=== PATIENT | female | born 1985 | race Caucasian/White ===

== ENCOUNTER 2019-02-16 17:29 | Inpatient (IN) | payer OTHER ==
[2019-02-16 19:36] VITALS: BMI 24.9
--- NOTE | 2019-02-17 01:53 | HP ---
CIWA Score Nausea/Vomitin-Mild Nausea/No Vomiting Muscle Tremors: 3 Anxiety: 3 Agitation: 4-Moderately Restless Paroxysmal Sweats: 2 Orientation: 1-Uncertain about Date Tacttile Disturbances: 0-None Auditory Disturbances: 0-None Visual Disturbances: 0-None Headache: 2-Mild CIWA-Ar Total Score: 16 - Admission Criteria OASAS Guidelines: Admission for Medically Managed Detox: Requires at least one of the followin. CIWA greater than 12 2. Seizures within the past 24 hours 3. Delirium tremens within the past 24 hours 4. Hallucinations within the past 24 hours 5. Acute intervention needed for co occurring medical disorder 6. Acute intervention needed for co occurring psychiatric disorder 7. Severe withdrawal that cannot be handled at a lower level of care (continued vomiting, continued diarrhea, abnormal vital signs) requiring intravenous medication and/or fluids 8. Admission ROS S - [facility] Chief Complaint: Alcohol withdrawal symptoms Allergies/Adverse Reactions: Allergies Allergy/AdvReac Type Severity Reaction Status Date / Time No Known Allergies Allergy Verified 02/16/19 19:20 History of Present Illness: 34 years old female with 20 years of alcohol dependence is seeking admission to detox. patient has been in previous detox at [facility]. This is her first admission at [facility]. Her has medical history of anxiety and depression. Denies suicide attempt and suicidal ideation at this time Exam Limitations: No Limitations - Ebola screening Have you traveled outside of the country in the last 21 days: No Have you had contact with anyone from an Ebola affected area: No Do you have a fever: No - Review of Systems Constitutional: Chills, Loss of Appetite, Night Sweats, Changes in sleep EENT: reports: No Symptoms Reported Respiratory: reports: No Symptoms reported Cardiac: reports: No Symptoms Reported GI: reports: Nausea, Poor Appetite, Poor Fluid Intake, Abdominal cramping : reports: No Symptoms Reported Musculoskeletal: reports: Back Pain, Joint Pain, Muscle Pain, Neck Pain Integumentary: reports: Dryness, Flushing Neuro: reports: Headache, Tremors Endocrine: reports: No Symptoms Reported Hematology: reports: No Symptoms Reported Psychiatric: reports: Anxious, Depressed Other Systems: Reviewed and Negative Patient History - Patient Medical History Hx Anemia: No Hx Asthma: No Hx Chronic Obstructive Pulmonary Disease (COPD): No Hx Cancer: No Hx Cardiac Disorders: No Hx Congestive Heart Failure: No Hx Hypertension: No Hx Hypercholesterolemia: No Hx Pacemaker: No HX Cerebrovascular Accident: No Hx Seizures: No Hx Dementia: No Hx Diabetes: No Hx Gastrointestinal Disorders: No Hx Liver Disease: No Hx Genitourinary Disorders: No Hx Sexually Transmitted Disorders: No Hx Renal Disease (ESRD): No Hx Thyroid Disease: No Hx Human Immunodeficiency Virus (HIV): No (Negative January 2019) Hx Hepatitis C: No Hx Depression: Yes (Cymbalta) Hx Suicide Attempt: No (Denies suicidal ideation at this time) Hx Bipolar Disorder: Yes (Lamictil) Other Medical History: ANXIETY - Cymbalta - Patient Surgical History Past Surgical History: No - PPD History Previous Implant?: Yes Documented Results: Negative w/o proof Implanted On Prior [facility] Admission?: No PPD to be Administered?: Yes - Reproductive History Patient is a Female of Child Bearing Age (11 -55 yrs old): No Last Menstrual Period: 02/03/19 Patient : No - Smoking Cessation Smoking history: Former smoker Have you smoked in the past 12 months: No Hx Chewing Tobacco Use: No Initiated information on smoking cessation: No - Substance & Tx. History Hx Alcohol Use: Yes Hx Substance Use: Yes Substance Use Type: Alcohol, Cocaine Hx Substance Use Treatment: Yes ([facility]) - Substances abused Alcohol Substance route: Oral Frequency: Daily Amount used: 1 BOTTLE VODKA Age of first use: 13 Date of last use: 02/16/19 Family Disease History - Family Disease History Family History: Denies Admission Physical Exam BHS - Vital Signs Vital Signs: Vital Signs - 24 hr 02/16/19 19:19 Temperature 97.8 F Pulse Rate 90 Respiratory 18 Rate Blood Pressure 113/74 - Physical General Appearance: Yes: Severe Distress HEENTM: Yes: EOMI, Normal ENT Inspection, Normal Voice, LOIS Respiratory: Yes: Lungs Clear, Normal Breath Sounds, No Respiratory Distress Neck: Yes: Supple Breast: Yes: Breast Exam Deferred Cardiology: Yes: Regular Rhythm, Regular Rate Abdominal: Yes: Normal Bowel Sounds, Soft Genitourinary: Yes: Within Normal Limits Back: Yes: Normal Inspection Musculoskeletal: Yes: Back pain, Muscle Pain Extremities: Yes: Tremors 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, Alert, Normal Mood/Affect Integumentary: Yes: Warm Lymphatic: Yes: Within Normal Limits - Diagnostic (1) Depression Current Visit: Yes Status: Acute (2) Anxiety Current Visit: Yes Status: Acute (3) Alcohol dependence with uncomplicated withdrawal Current Visit: Yes Status: Acute Cleared for Admission [facility] - Detox or Rehab [facility] Level of Care: Medically Managed Detox Regimen/Protocol: Librium Breathalyzer - Breathalyzer Breathalyzer: 0 POC Urine test - Test device test lot number: [id number] Expiration date: 06/23/20 - Control test control: Yes - Result Urine Test Results: Negative - NO line present Urine Drug Screen - Test Device Lot number: [id number] Expiration date: 09/22/20 - Control Is test valid?: Yes - Results Drug screen NEGATIVE: No Urine drug screen results: NU-Cocaine, BZO-Benzodiazepines Inpatient Rehab Admission - Rehab Decision to Admit Inpatient rehab admission?: No
[2019-02-17] MEDS ORDERED: chlordiazePOXIDE HCL 25 MG CAPSULE PO PRN (02:08)
[2019-02-17] MEDS ORDERED: ACETAMINOPHEN 325 MG TABLET (FP) PO PRN ×2 (02:08)
[2019-02-17] MEDS ORDERED: MAG HYDROX/AL HYDROX/SIMETH 30 ML UNIT-DOSE CUP PO PRN (02:08)
[2019-02-17] MEDS ORDERED: MAGNESIUM HYDROX 2400MG/30ML ORAL SUSPENSION 30 ML CUP PO PRN (02:08)
[2019-02-17] MEDS ORDERED: MENTHOL/PHENOL 1 EACH UD MM PRN (02:08)
[2019-02-17] MEDS ORDERED: MELATONIN 5 MG TABLETS PO PRN (02:08)
[2019-02-17] MEDS ORDERED: hydrOXYzine PAMOATE 25 MG CAPSULE (FP) PO PRN (02:08)
[2019-02-17] MEDS ORDERED: MAGNESIUM CITRATE 300 ML BOTTLE PO PRN (02:08)
[2019-02-17] MEDS ORDERED: BISMUTH SUBSALICYLATE 524 MG/30 ML UD PO PRN (02:08)
[2019-02-17] MEDS: chlordiazePOXIDE HCL 25 MG CAPSULE PO SCH ×4 (04:00→23:20)
[2019-02-17] MEDS: PRENATAL VITAMINS W/ FOLIC ACID TABLET (FP) PO SCH (10:13)
--- NOTE | 2019-02-17 13:07 | CONSULT ---
[facility] Psychiatric Consult - Data Date of interview: 02/17/19 Admission source: [facility] Identifying data: First admission to [facility] for this 34 y/o female self-referred or detoxification treatment (alcohol, cocaine). Examined at [address] [place] [address]. Patient is single, no children, undomiciled, unemployed and supported by biological father. Substance Abuse History: Confrmed by the patient in this interview. Details in current [facility] report as follows : Smoking history: Former smoker. Have you smoked in the past 12 months: No. Hx Chewing Tobacco Use: No. Initiated information on smoking cessation: No. - Substance & Tx. History. Hx Alcohol Use: Yes. Hx Substance Use: Yes. Substance Use Type: Alcohol, Cocaine. Hx Substance Use Treatment: Yes ([facility] - Substances abused. Alcohol. Substance route: Oral. Frequency: Daily. Amount used: 1 BOTTLE VODKA. Age of first use: 13. Date of last use: 02/16/19 Medical History: Patient endorses good general health. Psychiatric History: No reported history of psychiatric hospitalizations. Patient states that she has recently returned to [place] from [place] (a month ago). Diagnosed in [place] with Anxiety Disorder and Mood Disorder. Medicated with lamotrigine (not taken for over a week), duloxetine and quetiapine (no adherence for more than a month). Ms Shepherd denies history of suicide attempts. Physical/Sexual Abuse/Trauma History: Not discussed. Patient declines. Additional Comment: Urine drug screen results: NU-Cocaine, BZO- Benzodiazepines. Noted. Mental Status Exam - Mental Status Exam Alert and Oriented to: Time, Place, Person Cognitive Function: Good Patient Appearance: Disheveled Mood: Nervous, Withdrawn Affect: Mood Congruent, Constricted Patient Behavior: Fatigued, Appropriate, Cooperative Speech Pattern: Clear, Appropriate Voice Loudness: Normal Thought Process: Goal Oriented Thought Disorder: Not Present Hallucinations: Denies Suicidal Ideation: Denies Homicidal Ideation: Denies Insight/Judgement: Poor Sleep: Poorly, Difficulty falling asleep Appetite: Good Gait/Station: Normal Psychiatric Findings - Problem List ([place] 1, 2,3) (1) Alcohol dependence with uncomplicated withdrawal Current Visit: Yes Status: Acute (2) Cocaine abuse Current Visit: Yes Status: Chronic (3) Substance induced mood disorder Current Visit: Yes Status: Chronic (4) History of bipolar disorder Current Visit: Yes Status: Chronic (5) Insomnia Current Visit: Yes Status: Chronic (6) Non-compliance Current Visit: Yes Status: Acute - Initial Treatment Plan Initial Treatment Plan: Psychoeducation. Sleep hygiene. Detoxification. Groups. AA meetings. Support. Relapse prevention (MAT) : discussed with the patient. Rehabilitative care recommended. Medicatiosn resumed as follows : seroquel 50 mg po hs + duloxetine 20 mg po daily. Side effects/benefits of both medications are discussed with the patient. Ms Shepherd agrees to follow this plan of care. Observation.
--- NOTE | 2019-02-17 13:50 | PN ---
S CIWA - CIWA Score Nausea/Vomitin-No Nausea/No Vomiting Muscle Tremors: 4-Moderate,w/Arms Extend Anxiety: 4-Mod. Anxious/Guarded Agitation: 4-Moderately Restless Paroxysmal Sweats: 3 Orientation: 0-Oriented Tacttile Disturbances: 0-None Auditory Disturbances: 0-None Visual Disturbances: 0-None Headache: 0-None Present CIWA-Ar Total Score: 15 BHS Progress Note (SOAP) Subjective: irritable agitation sweats shakes interrupted sleep Objective: 02/17/19 13:49 Vital Signs Temperature 97.1 F L 02/17/19 09:58 Pulse Rate 83 02/17/19 09:58 Respiratory Rate 16 02/17/19 09:58 Blood Pressure 91/63 02/17/19 09:58 O2 Sat by Pulse Oximetry (%) labs pending aaox3 ambulating no acute distress Assessment: 02/17/19 13:50 withdrawal sx Plan: continue detox increase fluids pending labs
[2019-02-17] MEDS: QUEtiapine FUMARATE 50 MG TABLET PO SCH (23:20)
[2019-02-17] MEDS: THIAMINE HCL 100 MG TABLET (FP) PO SCH (23:20)
[2019-02-17 23:52] LABS: PH,URINE 7.5 (5.0-8.0); URINE APPEARANCE CLEAR; URINE BILIRUBIN NEGATIVE (NEGATIVE); URINE COLOR YELLOW; URINE GLUCOSE (UA) NEGATIVE (NEGATIVE); URINE KETONE TRACE (NEGATIVE); URINE LEUK ESTERASE NEGATIVE (NEGATIVE); URINE NITRITE NEGATIVE (NEGATIVE); URINE PROTEIN NEGATIVE (NEGATIVE)
[2019-02-18] MEDS: chlordiazePOXIDE HCL 25 MG CAPSULE PO SCH ×4 (05:57→22:49)
[2019-02-18 11:00] LABS: HEMOGLOBIN 12.6 GM/dL (10.7-15.3); MCH 29.9 pg (25.7-33.7); MCHC 33.2 g/dl (32.0-36.0); MEAN CELL VOLUME 90.1 fl (80-96); PLATELET COUNT 658 K/MM3 (134-434); RBC 4.22 M/mm3 (3.60-5.2); RDW 19.6 % (11.6-15.6); WHITE BLOOD COUNT 4.1 K/mm3 (4.0-10.0)
[2019-02-18] MEDS: PRENATAL VITAMINS W/ FOLIC ACID TABLET (FP) PO SCH (11:00)
[2019-02-18] MEDS: IBUPROFEN 400 MG TABLET (FP) PO PRN ×2 (11:01→19:46)
[2019-02-18 11:03] LABS: ALBUMIN 3.1 g/dl (3.4-5.0); ALK PHOS 59 U/L (45-117); ANION GAP 6 MMOL/L (8-16); BILIRUBIN,TOTAL 0.5 mg/dL (0.2-1); BLOOD UREA NITROGEN 4 mg/dL (7-18); CALCIUM 9.2 mg/dL (8.5-10.1); CHLORIDE 101 mmol/L (98-107); CO2 29 mmol/L (21-32); CREATININE 0.5 mg/dL (0.55-1.3); GLUCOSE,RANDOM 89 mg/dL (74-106); SGOT/AST 38 U/L (15-37); SGPT/ALT 44 U/L (13-61); SODIUM 136 mmol/L (136-145); TOT PROT 6.8 g/dl (6.4-8.2)
[2019-02-18] MEDS: DULoxetine HCL 20 MG CAPSULE.DR (FP) PO SCH (11:33)
--- NOTE | 2019-02-18 14:18 | PN ---
[facility] CIWA - CIWA Score Nausea/Vomitin-No Nausea/No Vomiting Muscle Tremors: 3 Anxiety: 2 Agitation: 2 Paroxysmal Sweats: 2 Orientation: 0-Oriented Tacttile Disturbances: 2-Mild Itch/Numbness/Burn Auditory Disturbances: 0-None Visual Disturbances: 0-None Headache: 0-None Present CIWA-Ar Total Score: 11 S Progress Note (SOAP) Subjective: patient c/o night sweats, anxiety, mild irritability, sleep disturbance, dry skin and shakes Objective: 02/18/19 14:17 Vital Signs Temperature 99.0 F 02/18/19 09:44 Pulse Rate 93 H 02/18/19 09:44 Respiratory Rate 18 02/18/19 09:44 Blood Pressure 121/70 02/18/19 09:44 O2 Sat by Pulse Oximetry (%) Laboratory Tests 02/17/19 02/18/19 02/18/19 23:40 07:00 07:00 WBC 4.1 RBC 4.22 Hgb 12.6 Hct 38.0 MCV 90.1 MCH 29.9 MCHC 33.2 RDW 19.6 H Plt Count 658 H MPV 8.0 Sodium 136 Potassium 4.0 Chloride 101 Carbon Dioxide 29 Anion Gap 6 L BUN 4 L Creatinine 0.5 L Creat Clearance w eGFR 140.41 Random Glucose 89 Calcium 9.2 Total Bilirubin 0.5 AST 38 H ALT 44 Alkaline Phosphatase 59 Total Protein 6.8 Albumin 3.1 L Urine Color Yellow Urine Appearance Clear Urine pH 7.5 Ur Specific [place] 1.019 Urine Protein Negative Urine Glucose (UA) Negative Urine Ketones Trace H Urine Blood Negative Urine Nitrite Negative Urine Bilirubin Negative Urine Urobilinogen 1.0 Ur Leukocyte Esterase Negative RPR Titer 02/18/19 07:00 WBC RBC Hgb Hct MCV MCH MCHC RDW Plt Count MPV Sodium Potassium Chloride Carbon Dioxide Anion Gap BUN Creatinine Creat Clearance w eGFR Random Glucose Calcium Total Bilirubin AST ALT Alkaline Phosphatase Total Protein Albumin Urine Color Urine Appearance Urine pH Ur Specific [place] Urine Protein Urine Glucose (UA) Urine Ketones Urine Blood Urine Nitrite Urine Bilirubin Urine Urobilinogen Ur Leukocyte Esterase RPR Titer Nonreactive pe: alert and oriented x 3 skin warm and dry +perrla, eoms intact ext +tremors amb ad norberto mildly anxious Assessment: 02/18/19 14:18 withdrawal sx Plan: continue detox encourage fluids eucerin cream monitor clinically
--- NOTE | 2019-02-18 15:31 | EKG ---
Test Reason : Blood Pressure : / mmHG Vent. Rate : 071 BPM Atrial Rate : 071 BPM P-R Int : 152 ms QRS Dur : 092 ms QT Int : 410 ms P-R-T Axes : 017 059 042 degrees QTc Int : 445 ms NORMAL SINUS RHYTHM NORMAL ECG NO PREVIOUS ECGS AVAILABLE Confirmed by NATALIE MINAYA MD ([id number]) on 02/18/2019 3:31:30 PM Referred By: Confirmed By:NATALIE MINAYA MD
[2019-02-18] MEDS: MINERAL OIL/PETROLAT/WATER TOPICAL CREAM 113 GM JAR TP SCH ×2 (17:52→22:47)
[2019-02-18] MEDS: METHOCARBAMOL 500 MG TABLET PO PRN (19:46)
[2019-02-18] MEDS: THIAMINE HCL 100 MG TABLET (FP) PO SCH (22:46)
[2019-02-18] MEDS: QUEtiapine FUMARATE 50 MG TABLET PO SCH (22:49)
[2019-02-19] MEDS ORDERED: chlordiazePOXIDE HCL 10 MG CAPSULE PO PRN (05:00)
[2019-02-19] MEDS: METHOCARBAMOL 500 MG TABLET PO PRN (06:04)
[2019-02-19] MEDS: chlordiazePOXIDE HCL 10 MG CAPSULE PO SCH ×4 (06:04→22:12)
[2019-02-19] MEDS: DULoxetine HCL 20 MG CAPSULE.DR (FP) PO SCH (10:58)
[2019-02-19] MEDS: PRENATAL VITAMINS W/ FOLIC ACID TABLET (FP) PO SCH (10:58)
[2019-02-19] MEDS: MINERAL OIL/PETROLAT/WATER TOPICAL CREAM 113 GM JAR TP SCH ×2 (10:59→22:10)
--- NOTE | 2019-02-19 11:05 | PN ---
[facility] CIWA - CIWA Score Nausea/Vomitin-No Nausea/No Vomiting Muscle Tremors: 3 Anxiety: 2 Agitation: 2 Paroxysmal Sweats: 1-Minimal Palms Moist Orientation: 0-Oriented Tacttile Disturbances: 0-None Auditory Disturbances: 0-None Visual Disturbances: 0-None Headache: 0-None Present CIWA-Ar Total Score: 8 BHS Progress Note (SOAP) Subjective: little shakes anxiety Objective: 02/19/19 11:05 Vital Signs Temperature 97.9 F 02/19/19 09:21 Pulse Rate 83 02/19/19 09:21 Respiratory Rate 18 02/19/19 09:21 Blood Pressure 118/71 02/19/19 09:21 O2 Sat by Pulse Oximetry (%) aaox3 ambulating no acute distress Assessment: 02/19/19 11:05 mild withdrawal sx Plan: continue detox increase fluids d/c in am
[2019-02-19] MEDS: metroNIDAZOLE 250 MG TABLET PO SCH ×2 (12:46→22:10)
[2019-02-19] MEDS: QUEtiapine FUMARATE 50 MG TABLET PO SCH (22:10)
[2019-02-19] MEDS: THIAMINE HCL 100 MG TABLET (FP) PO SCH (22:12)
[2019-02-19 22:17] VITALS: PULSE 70
[2019-02-20] MEDS ORDERED: chlordiazePOXIDE HCL 10 MG CAPSULE PO SCH (05:00)
[2019-02-20 07:35] VITALS: BP 100/55; TEMP 97.9
[2019-02-20] MEDS: metroNIDAZOLE 250 MG TABLET PO SCH (09:36)
[2019-02-20] MEDS: DULoxetine HCL 20 MG CAPSULE.DR (FP) PO SCH (09:36)
[2019-02-20] MEDS: PRENATAL VITAMINS W/ FOLIC ACID TABLET (FP) PO SCH (09:36)
--- NOTE | 2019-02-20 10:03 | DS ---
[facility] Detox Discharge Summary Admission Date: 02/17/19 Discharge Date: 02/20/19 - History Present History: Alcohol Dependence, Cocaine Dependence - Physical Exam Results Vital Signs: Vital Signs Temperature 97.9 F 02/20/19 06:00 Pulse Rate 70 02/20/19 06:00 Respiratory Rate 16 02/20/19 06:00 Blood Pressure 100/55 L 02/20/19 06:00 O2 Sat by Pulse Oximetry (%) - Treatment Hospital Course: Detox Protocol Followed, Detoxed Safely, Responded well, Discharged Condition Good, Rehab Referral Accepted - Medication Discharge Medications: Ambulatory Orders Duloxetine HCl [Cymbalta] 20 mg PO DAILY 02/16/19 Lamotrigine [Lamictal Xr] 50 mg PO DAILY 02/16/19 metroNIDAZOLE [Flagyl -] 500 mg PO BID #12 tablet 02/20/19 - Diagnosis (1) Alcohol dependence with uncomplicated withdrawal Status: Chronic (2) Anxiety Status: Acute (3) Depression Status: Acute (4) Cocaine abuse Status: Chronic (5) History of bipolar disorder Status: Chronic (6) Insomnia Status: Chronic (7) Substance induced mood disorder Status: Chronic - AMA Did Patient Leave Against Medical Advice: No (referred to [facility] outpatient rehab)
== END 2019-02-20 09:46 | disposition home or self-care (01) | DRG 774 ==
LOC: YASAS 17:29 → Y6N 02-17 01:55
PROVIDERS: ADMIT Surgery; ATTEND Surgery
PROC: HZ2ZZZZ Detoxification Services for Substance Abuse Treatment (ICD-10-PCS; principal; 2019-02-17)
DX: F10.230 Alcohol dependence with withdrawal, uncomplicated (principal); F14.10 Cocaine abuse, uncomplicated; F19.24 Other psychoactive substance dependence with psychoactive substance-induced mood disorder; F41.8 Other specified anxiety disorders; F32.9 Major depressive disorder, single episode, unspecified; F31.9 Bipolar disorder, unspecified; G47.00 Insomnia, unspecified; Z91.19 Patient's noncompliance with other medical treatment and regimen
CPT/HCPCS: 36415; 80053; 81003; 85027; 86593; 93005; 93010

== ENCOUNTER 2019-11-18 10:05 | Inpatient (IN) | payer OTHER ==
[2019-11-18 10:21] VITALS: BMI 24.9
--- NOTE | 2019-11-18 11:01 | HP ---
CIWA Score Nausea/Vomitin Muscle Tremors: 3 Anxiety: 3 Agitation: 2 Paroxysmal Sweats: 2 Orientation: 0-Oriented Tacttile Disturbances: 1-Very Mild Itch/Numbness Auditory Disturbances: 0-None Visual Disturbances: 0-None Headache: 2-Mild CIWA-Ar Total Score: 15 - Admission Criteria OASAS Guidelines: Admission for Medically Managed Detox: Requires at least one of the followin. CIWA greater than 12 2. Seizures within the past 24 hours 3. Delirium tremens within the past 24 hours 4. Hallucinations within the past 24 hours 5. Acute intervention needed for co occurring medical disorder 6. Acute intervention needed for co occurring psychiatric disorder 7. Severe withdrawal that cannot be handled at a lower level of care (continued vomiting, continued diarrhea, abnormal vital signs) requiring intravenous medication and/or fluids 8. Patient presents the following: CIWA greater than 12 Admission Criteria Met: Admission criteria met Admitting History and Physical - Past Medical History ...LMP: 02/03/19 - Smoking History Smoking history: Former smoker Have you smoked in the past 12 months: No - Alcohol/Substance Use Hx Alcohol Use: Yes Admission ROS [facility] - [facility] Chief Complaint: Withdrawal sx Allergies/Adverse Reactions: Allergies Allergy/AdvReac Type Severity Reaction Status Date / Time No Known Allergies Allergy Verified 11/18/19 10:15 History of Present Illness: Patient is a 34 years old female with 21 years of alcohol dependence who presents for detox. Her last treatment at [facility] was from 02/17/19-02/20/19 then went to [facility] detox in August. She reports several blackouts, last episode was last night. She denies alcohol related seizures. - Ebola screening Have you traveled outside of the country in the last 21 days: No (N) Have you had contact with anyone from an Ebola affected area: No Have you been sick,other than usual withdrawal symptoms: No Do you have a fever: No - Review of Systems Constitutional: Chills, Malaise, Changes in sleep, Weight Stable EENT: reports: No Symptoms Reported Respiratory: reports: SOB with Exertion Cardiac: reports: Chest Pain (on and off) GI: reports: Poor Appetite, Poor Fluid Intake, Abdominal cramping : reports: No Symptoms Reported Musculoskeletal: reports: Back Pain, Joint Pain, Muscle Pain, Muscle Weakness Integumentary: reports: Sweating Neuro: reports: Headache, Numbness, Tremors Endocrine: reports: No Symptoms Reported Hematology: reports: No Symptoms Reported Psychiatric: reports: Orientated x3, Anxious, Depressed Other Systems: Reviewed and Negative Patient History - Patient Medical History Hx Anemia: No Hx Asthma: No Hx Chronic Obstructive Pulmonary Disease (COPD): No Hx Cancer: No Hx Cardiac Disorders: No Hx Congestive Heart Failure: No Hx Hypertension: No Hx Hypercholesterolemia: No Hx Pacemaker: No HX Cerebrovascular Accident: No Hx Seizures: No Hx Dementia: No Hx Diabetes: No Hx Gastrointestinal Disorders: No Hx Liver Disease: No Hx Genitourinary Disorders: No Hx Sexually Transmitted Disorders: No Hx Renal Disease (ESRD): No Hx Thyroid Disease: No Hx Human Immunodeficiency Virus (HIV): No Hx Hepatitis C: No Hx Depression: Yes Hx Suicide Attempt: No Hx Bipolar Disorder: Yes Hx Schizophrenia: No - Patient Surgical History Past Surgical History: Yes Hx Neurologic Surgery: No Hx Cataract Extraction: No Hx Cardiac Surgery: No Hx Lung Surgery: Yes (partial right lung removal) Hx Breast Surgery: No Hx Breast Biopsy: No Hx Abdominal Surgery: No Hx Appendectomy: No Hx Cholecystectomy: No Hx Genitourinary Surgery: No Hx Section: No Hx Orthopedic Surgery: No Hx Hysterectomy: No Anesthesia Reaction: No - PPD History Previous Implant?: Yes Documented Results: Negative w/proof Implanted On Prior [facility] Admission?: Yes Date: 02/19/19 PPD to be Administered?: No - Reproductive History Patient is a Female of Child Bearing Age (11 -55 yrs old): Yes Last Menstrual Period: 10/17/19 Patient : No - Smoking Cessation Smoking history: Former smoker Have you smoked in the past 12 months: No Hx Chewing Tobacco Use: No Initiated information on smoking cessation: No - Substances abused Alcohol Substance route: Oral Frequency: Daily Amount used: 3pints of vodka Age of first use: 13 Date of last use: 11/17/19 Admission Physical Exam BHS - Vital Signs Vital Signs: Vital Signs - 24 hr 11/18/19 10:17 Temperature 97.5 F L Pulse Rate 72 Respiratory 16 Rate Blood Pressure 123/82 - Physical General Appearance: Yes: Mild Distress HEENTM: Yes: EOMI, Hearing grossly Normal, Normocephalic, Normal Voice, Pharynx Normal Respiratory: Yes: Chest Non-Tender, Lungs Clear, Normal Breath Sounds, No Respiratory Distress, No Accessory Muscle Use Neck: Yes: No masses,lesions,Nodules, Supple Breast: Yes: Breast Exam Deferred Cardiology: Yes: Regular Rhythm, Regular Rate, S1, S2 Abdominal: Yes: Normal Bowel Sounds, Non Tender, Soft Genitourinary: Yes: Within Normal Limits Back: Yes: Normal Inspection Musculoskeletal: Yes: Back pain, Muscle Pain, Muscle weakness Extremities: Yes: Tremors 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 - Detox or Rehab [facility] Level of Care: Medically Managed Detox Regimen/Protocol: Librium Claeared for Rehab Admission: No Breathalyzer - Breathalyzer Breathalyzer: 0 POC Urine test - Test device test lot number: [id number] Expiration date: 06/23/20 - Control test control: Yes Urine Drug Screen - Test Device Lot number: [id number] Expiration date: 05/23/21 - Control Is test valid?: Yes - Results Drug screen NEGATIVE: No Urine drug screen results: NU-Cocaine, BZO-Benzodiazepines Inpatient Rehab Admission - Rehab Decision to Admit Inpatient rehab admission?: No
[2019-11-18] MEDS ORDERED: MAGNESIUM CITRATE 300 ML BOTTLE PO PRN (11:09)
[2019-11-18] MEDS ORDERED: ACETAMINOPHEN 325 MG TABLET (FP) PO PRN ×2 (11:09)
[2019-11-18] MEDS ORDERED: IBUPROFEN 400 MG TABLET (FP) PO PRN (11:09)
[2019-11-18] MEDS ORDERED: chlordiazePOXIDE HCL 10 MG CAPSULE PO PRN (11:09)
[2019-11-18] MEDS ORDERED: MELATONIN 5 MG TABLETS PO PRN (11:09)
[2019-11-18] MEDS ORDERED: ONDANSETRON *ODT* 4 MG TABLET SL PRN (11:09)
[2019-11-18] MEDS ORDERED: MAGNESIUM HYDROX 2400MG/30ML ORAL SUSPENSION 30 ML CUP PO PRN (11:09)
[2019-11-18] MEDS ORDERED: MAG HYDROX/AL HYDROX/SIMETH 30 ML UNIT-DOSE CUP PO PRN (11:09)
[2019-11-18] MEDS ORDERED: hydrOXYzine PAMOATE 25 MG CAPSULE (FP) PO PRN (11:09)
[2019-11-18] MEDS ORDERED: MENTHOL/PHENOL 1 EACH UD MM PRN (11:09)
[2019-11-18] MEDS ORDERED: BISMUTH SUBSALICYLATE 524 MG/30 ML UD PO PRN (11:09)
[2019-11-18] MEDS: chlordiazePOXIDE HCL 25 MG CAPSULE PO SCH ×2 (12:38→22:07)
[2019-11-18] MEDS: THIAMINE HCL 100 MG TABLET (FP) PO SCH (22:07)
[2019-11-18] MEDS: METHOCARBAMOL 500 MG TABLET PO PRN (22:08)
[2019-11-19] MEDS: chlordiazePOXIDE HCL 25 MG CAPSULE PO SCH ×3 (05:38→21:44)
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
[2019-11-19 09:35] LABS: HEMATOCRIT 35.3 % (32.4-45.2); HEMOGLOBIN 11.7 GM/dL (10.7-15.3); MCH 31.1 pg (25.7-33.7); MCHC 33.3 g/dl (32.0-36.0); MEAN CELL VOLUME 93.3 fl (80-96); PLATELET COUNT 251 K/MM3 (134-434); RBC 3.78 M/mm3 (3.60-5.2); WHITE BLOOD COUNT 3.8 K/mm3 (4.0-10.0)
[2019-11-19 09:44] LABS: ALBUMIN 3.3 g/dl (3.4-5.0); BILIRUBIN,TOTAL 0.6 mg/dL (0.2-1); BLOOD UREA NITROGEN 4.6 mg/dL (7-18); CALCIUM 8.4 mg/dL (8.5-10.1); CREATININE 0.5 mg/dL (0.55-1.3); POTASSIUM 3.8 mmol/L (3.5-5.1); TOT PROT 7.1 g/dl (6.4-8.2)
[2019-11-19] MEDS: PRENATAL VITAMINS W/ FOLIC ACID TABLET (FP) PO SCH (10:09)
[2019-11-19] MEDS: lamoTRIgine 25 MG TABLET PO SCH (10:27)
[2019-11-19] MEDS: DULoxetine HCL 20 MG CAPSULE.DR PO SCH (10:27)
--- NOTE | 2019-11-19 13:58 | PN ---
[facility] CIWA - CIWA Score Nausea/Vomitin-No Nausea/No Vomiting Muscle Tremors: 3 Anxiety: 2 Agitation: 1-Slight > Activity Paroxysmal Sweats: 2 Orientation: 0-Oriented Tacttile Disturbances: 1-Very Mild Itch/Numbness Auditory Disturbances: 1-Very Mild Visual Disturbances: 1-Very Mild Sensitivity Headache: 0-None Present CIWA-Ar Total Score: 11 S Progress Note (SOAP) Subjective: 34 years old female admitted on 11/18/19 for alcohol withdrawal sx management treating with librium detox regimen c/o general body aches encourage tylenal administration loose stool imodium 4 mg po x 1 poor appetite ensure supplement Objective: 11/19/19 14:00 Vital Signs Temperature 97.9 F 11/19/19 13:16 Pulse Rate 60 11/19/19 13:16 Respiratory Rate 16 11/19/19 13:16 Blood Pressure 123/85 11/19/19 13:16 O2 Sat by Pulse Oximetry (%) Laboratory Last Values WBC 3.8 K/mm3 (4.0-10.0) L 11/19/19 08:00 RBC 3.78 M/mm3 (3.60-5.2) 11/19/19 08:00 Hgb 11.7 GM/dL (10.7-15.3) 11/19/19 08:00 Hct 35.3 % (32.4-45.2) 11/19/19 08:00 MCV 93.3 fl (80-96) 11/19/19 08:00 MCH 31.1 pg (25.7-33.7) 11/19/19 08:00 MCHC 33.3 g/dl (32.0-36.0) 11/19/19 08:00 RDW 19.0 % (11.6-15.6) H 11/19/19 08:00 Plt Count 251 K/MM3 (134-434) D 11/19/19 08:00 MPV 8.0 fl (7.5-11.1) 11/19/19 08:00 Sodium 136 mmol/L (136-145) 11/19/19 08:00 Potassium 3.8 mmol/L (3.5-5.1) 11/19/19 08:00 Chloride 104 mmol/L (98-107) 11/19/19 08:00 Carbon Dioxide 24 mmol/L (21-32) 11/19/19 08:00 Anion Gap 8 MMOL/L (8-16) 11/19/19 08:00 BUN 4.6 mg/dL (7-18) L 11/19/19 08:00 Creatinine 0.5 mg/dL (0.55-1.3) L 11/19/19 08:00 Est GFR (CKD-EPI)AfAm 145.33 11/19/19 08:00 Est GFR (CKD-EPI)NonAf 125.39 11/19/19 08:00 Random Glucose 91 mg/dL (74-106) 11/19/19 08:00 Calcium 8.4 mg/dL (8.5-10.1) L 11/19/19 08:00 Total Bilirubin 0.6 mg/dL (0.2-1) 11/19/19 08:00 AST 54 U/L (15-37) H 11/19/19 08:00 ALT 51 U/L (13-61) 11/19/19 08:00 Alkaline Phosphatase 57 U/L (45-117) 11/19/19 08:00 Total Protein 7.1 g/dl (6.4-8.2) 11/19/19 08:00 Albumin 3.3 g/dl (3.4-5.0) L 11/19/19 08:00 RPR Titer Nonreactive (NONREACTIVE) 11/19/19 08:00 lab noted Assessment: 11/19/19 14:01 alcohol withdrawal Plan: librium regimen
[2019-11-19] MEDS: busPIRone HCL 10 MG TABLET (FP) PO SCH ×2 (14:24→21:44)
[2019-11-19] MEDS ORDERED: LOPERAMIDE HCL 2 MG CAPSULE PO ONE (14:30)
[2019-11-19] MEDS: traZODone HCL 100 MG TABLET (FP) PO SCH (21:44)
[2019-11-19] MEDS: THIAMINE HCL 100 MG TABLET (FP) PO SCH (21:44)
[2019-11-20] MEDS: chlordiazePOXIDE 5 MG CAPSULE PO SCH ×3 (05:37→22:09)
[2019-11-20] MEDS: busPIRone HCL 10 MG TABLET (FP) PO SCH ×3 (05:37→22:10)
[2019-11-20] MEDS: PRENATAL VITAMINS W/ FOLIC ACID TABLET (FP) PO SCH (10:27)
[2019-11-20] MEDS: lamoTRIgine 25 MG TABLET PO SCH (10:27)
[2019-11-20] MEDS: DULoxetine HCL 20 MG CAPSULE.DR PO SCH (10:27)
[2019-11-20] MEDS ORDERED: guaiFENesin 600 MG TABLET.ER (FP) PO SCH (12:15)
--- NOTE | 2019-11-20 12:15 | PN ---
[facility] CIWA - CIWA Score Nausea/Vomitin-No Nausea/No Vomiting Muscle Tremors: 2 Anxiety: 2 Agitation: 2 Paroxysmal Sweats: 2 Orientation: 0-Oriented Tacttile Disturbances: 0-None Auditory Disturbances: 0-None Visual Disturbances: 1-Very Mild Sensitivity Headache: 0-None Present CIWA-Ar Total Score: 9 S Progress Note (SOAP) Subjective: 34 years old female admitted on 11/18/19 for alcohol withdrawal sx management treating with librium detox regiment patient reports frequent urination UA order requests to discuss dosage change for her psychotropic medication Objective: 11/20/19 12:18 Vital Signs Temperature 96.4 F L 11/20/19 09:07 Pulse Rate 69 11/20/19 09:07 Respiratory Rate 16 11/20/19 09:07 Blood Pressure 111/73 11/20/19 09:07 O2 Sat by Pulse Oximetry (%) Laboratory Last Values WBC 3.8 K/mm3 (4.0-10.0) L 11/19/19 08:00 RBC 3.78 M/mm3 (3.60-5.2) 11/19/19 08:00 Hgb 11.7 GM/dL (10.7-15.3) 11/19/19 08:00 Hct 35.3 % (32.4-45.2) 11/19/19 08:00 MCV 93.3 fl (80-96) 11/19/19 08:00 MCH 31.1 pg (25.7-33.7) 11/19/19 08:00 MCHC 33.3 g/dl (32.0-36.0) 11/19/19 08:00 RDW 19.0 % (11.6-15.6) H 11/19/19 08:00 Plt Count 251 K/MM3 (134-434) D 11/19/19 08:00 MPV 8.0 fl (7.5-11.1) 11/19/19 08:00 Sodium 136 mmol/L (136-145) 11/19/19 08:00 Potassium 3.8 mmol/L (3.5-5.1) 11/19/19 08:00 Chloride 104 mmol/L (98-107) 11/19/19 08:00 Carbon Dioxide 24 mmol/L (21-32) 11/19/19 08:00 Anion Gap 8 MMOL/L (8-16) 11/19/19 08:00 BUN 4.6 mg/dL (7-18) L 11/19/19 08:00 Creatinine 0.5 mg/dL (0.55-1.3) L 11/19/19 08:00 Est GFR (CKD-EPI)AfAm 145.33 11/19/19 08:00 Est GFR (CKD-EPI)NonAf 125.39 11/19/19 08:00 Random Glucose 91 mg/dL (74-106) 11/19/19 08:00 Calcium 8.4 mg/dL (8.5-10.1) L 11/19/19 08:00 Total Bilirubin 0.6 mg/dL (0.2-1) 11/19/19 08:00 AST 54 U/L (15-37) H 11/19/19 08:00 ALT 51 U/L (13-61) 11/19/19 08:00 Alkaline Phosphatase 57 U/L (45-117) 11/19/19 08:00 Total Protein 7.1 g/dl (6.4-8.2) 11/19/19 08:00 Albumin 3.3 g/dl (3.4-5.0) L 11/19/19 08:00 RPR Titer Nonreactive (NONREACTIVE) 11/19/19 08:00 lab noted Assessment: 11/20/19 12:19 alcohol withdrawal patient prefers out patient due to a "case" pending in court and "teeth" needed to be fixed and she wants to go to [place] to her family Plan: librium regiment
[2019-11-20] MEDS: THIAMINE HCL 100 MG TABLET (FP) PO SCH (22:09)
[2019-11-20] MEDS: traZODone HCL 100 MG TABLET (FP) PO SCH (22:10)
[2019-11-20] MEDS: METHOCARBAMOL 500 MG TABLET PO PRN (22:13)
[2019-11-21] MEDS ORDERED: chlordiazePOXIDE HCL 10 MG CAPSULE PO PRN
[2019-11-21] MEDS: chlordiazePOXIDE HCL 10 MG CAPSULE PO SCH ×3 (06:28→22:13)
[2019-11-21] MEDS: busPIRone HCL 10 MG TABLET (FP) PO SCH ×3 (06:28→22:13)
[2019-11-21] MEDS: PRENATAL VITAMINS W/ FOLIC ACID TABLET (FP) PO SCH (10:16)
[2019-11-21] MEDS: lamoTRIgine 25 MG TABLET PO SCH (10:16)
[2019-11-21] MEDS: DULoxetine HCL 20 MG CAPSULE.DR PO SCH (10:16)
--- NOTE | 2019-11-21 12:27 | PN ---
[facility] CIWA - CIWA Score Nausea/Vomitin-No Nausea/No Vomiting Muscle Tremors: 1-None Visible, but [place] Anxiety: 1-Mildly Anxious Agitation: 1-Slight > Activity Paroxysmal Sweats: 1-Minimal Palms Moist Orientation: 0-Oriented Tacttile Disturbances: 0-None Auditory Disturbances: 0-None Visual Disturbances: 1-Very Mild Sensitivity Headache: 0-None Present CIWA-Ar Total Score: 5 B[facility] Progress Note (SOAP) Subjective: 34 years old female admitted on 11/20/19 for alcohol withdrawal sx management treating with librium detox regiment feeling better today slept through the night less tremor mild anxiety reports frequent urination ua order result pending Objective: 11/21/19 12:35 Vital Signs Temperature 98 F 11/21/19 08:01 Pulse Rate 71 11/21/19 08:01 Respiratory Rate 18 11/21/19 08:01 Blood Pressure 107/69 11/21/19 08:01 O2 Sat by Pulse Oximetry (%) Laboratory Last Values WBC 3.8 K/mm3 (4.0-10.0) L 11/19/19 08:00 RBC 3.78 M/mm3 (3.60-5.2) 11/19/19 08:00 Hgb 11.7 GM/dL (10.7-15.3) 11/19/19 08:00 Hct 35.3 % (32.4-45.2) 11/19/19 08:00 MCV 93.3 fl (80-96) 11/19/19 08:00 MCH 31.1 pg (25.7-33.7) 11/19/19 08:00 MCHC 33.3 g/dl (32.0-36.0) 11/19/19 08:00 RDW 19.0 % (11.6-15.6) H 11/19/19 08:00 Plt Count 251 K/MM3 (134-434) D 11/19/19 08:00 MPV 8.0 fl (7.5-11.1) 11/19/19 08:00 Sodium 136 mmol/L (136-145) 11/19/19 08:00 Potassium 3.8 mmol/L (3.5-5.1) 11/19/19 08:00 Chloride 104 mmol/L (98-107) 11/19/19 08:00 Carbon Dioxide 24 mmol/L (21-32) 11/19/19 08:00 Anion Gap 8 MMOL/L (8-16) 11/19/19 08:00 BUN 4.6 mg/dL (7-18) L 11/19/19 08:00 Creatinine 0.5 mg/dL (0.55-1.3) L 11/19/19 08:00 Est GFR (CKD-EPI)AfAm 145.33 11/19/19 08:00 Est GFR (CKD-EPI)NonAf 125.39 11/19/19 08:00 Random Glucose 91 mg/dL (74-106) 11/19/19 08:00 Calcium 8.4 mg/dL (8.5-10.1) L 11/19/19 08:00 Total Bilirubin 0.6 mg/dL (0.2-1) 11/19/19 08:00 AST 54 U/L (15-37) H 11/19/19 08:00 ALT 51 U/L (13-61) 11/19/19 08:00 Alkaline Phosphatase 57 U/L (45-117) 11/19/19 08:00 Total Protein 7.1 g/dl (6.4-8.2) 11/19/19 08:00 Albumin 3.3 g/dl (3.4-5.0) L 11/19/19 08:00 RPR Titer Nonreactive (NONREACTIVE) 11/19/19 08:00 lab noted Assessment: 11/21/19 12:35 alcohol withdrawal Plan: librium regiment
[2019-11-21 22:01] LABS: URINE APPEARANCE CLEAR; URINE BILIRUBIN NEGATIVE (NEGATIVE); URINE COLOR YELLOW; URINE GLUCOSE (UA) NEGATIVE (NEGATIVE); URINE KETONE NEGATIVE (NEGATIVE)
[2019-11-21 22:02] LABS: URINE LEUK ESTERASE NEGATIVE (NEGATIVE); URINE NITRITE NEGATIVE (NEGATIVE); URINE PROTEIN NEGATIVE (NEGATIVE); URINE UROBILINOGEN 0.2 mg/dL (0.2-1.0)
[2019-11-21] MEDS: THIAMINE HCL 100 MG TABLET (FP) PO SCH (22:13)
[2019-11-21] MEDS: traZODone HCL 100 MG TABLET (FP) PO SCH (22:13)
[2019-11-21 22:20] LABS: EPI CELLS FEW /HPF (0-5/HPF); URINE WBC 0-2 /hpf (0-5)
[2019-11-22] MEDS ORDERED: chlordiazePOXIDE HCL 10 MG CAPSULE PO ONE (05:00)
[2019-11-22] MEDS: busPIRone HCL 10 MG TABLET (FP) PO SCH (06:13)
[2019-11-22 08:36] VITALS: PULSE 67
[2019-11-22 09:20] VITALS: BP 105/56; TEMP 97.9
--- NOTE | 2019-11-22 10:17 | DS ---
[facility] Detox Discharge Summary Admission Date: 11/18/19 Discharge Date: 11/22/19 - History Present History: Alcohol Dependence Additional Comments: 34 years old female admitted on 11/18/19 for alcohol withdrawal sx management treated with labium detox regiment patient has completed labium regiment and tolerated well alert oriented x 3 cardiac s1s2 regular rate rhythm respiratory clear lungs bilaterally on auscultation skin warm and dry - Physical Exam Results Vital Signs: Vital Signs Temperature 97.9 F 11/22/19 08:35 Pulse Rate 67 11/22/19 08:35 Respiratory Rate 18 11/22/19 08:35 Blood Pressure 105/56 L 11/22/19 08:35 O2 Sat by Pulse Oximetry (%) Pertinent Admission Physical Exam Findings: alcohol withdrawal Laboratory Last Values WBC 3.8 K/mm3 (4.0-10.0) L 11/19/19 08:00 RBC 3.78 M/mm3 (3.60-5.2) 11/19/19 08:00 Hgb 11.7 GM/dL (10.7-15.3) 11/19/19 08:00 Hct 35.3 % (32.4-45.2) 11/19/19 08:00 MCV 93.3 fl (80-96) 11/19/19 08:00 MCH 31.1 pg (25.7-33.7) 11/19/19 08:00 MCHC 33.3 g/dl (32.0-36.0) 11/19/19 08:00 RDW 19.0 % (11.6-15.6) H 11/19/19 08:00 Plt Count 251 K/MM3 (134-434) D 11/19/19 08:00 MPV 8.0 fl (7.5-11.1) 11/19/19 08:00 Sodium 136 mmol/L (136-145) 11/19/19 08:00 Potassium 3.8 mmol/L (3.5-5.1) 11/19/19 08:00 Chloride 104 mmol/L (98-107) 11/19/19 08:00 Carbon Dioxide 24 mmol/L (21-32) 11/19/19 08:00 Anion Gap 8 MMOL/L (8-16) 11/19/19 08:00 BUN 4.6 mg/dL (7-18) L 11/19/19 08:00 Creatinine 0.5 mg/dL (0.55-1.3) L 11/19/19 08:00 Est GFR (CKD-EPI)AfAm 145.33 11/19/19 08:00 Est GFR (CKD-EPI)NonAf 125.39 11/19/19 08:00 Random Glucose 91 mg/dL (74-106) 11/19/19 08:00 Calcium 8.4 mg/dL (8.5-10.1) L 11/19/19 08:00 Total Bilirubin 0.6 mg/dL (0.2-1) 11/19/19 08:00 AST 54 U/L (15-37) H 11/19/19 08:00 ALT 51 U/L (13-61) 11/19/19 08:00 Alkaline Phosphatase 57 U/L (45-117) 11/19/19 08:00 Total Protein 7.1 g/dl (6.4-8.2) 11/19/19 08:00 Albumin 3.3 g/dl (3.4-5.0) L 11/19/19 08:00 Urine Color Yellow 11/21/19 11:30 Urine Appearance Clear 11/21/19 11:30 Urine pH 7.0 (5.0-8.0) 11/21/19 11:30 Ur Specific [place] 1.005 (1.010-1.035) L 11/21/19 11:30 Urine Protein Negative (NEGATIVE) 11/21/19 11:30 Urine Glucose (UA) Negative (NEGATIVE) 11/21/19 11:30 Urine Ketones Negative (NEGATIVE) 11/21/19 11:30 Urine Blood 3+ (NEGATIVE) H 11/21/19 11:30 Urine Nitrite Negative (NEGATIVE) 11/21/19 11:30 Urine Bilirubin Negative (NEGATIVE) 11/21/19 11:30 Urine Urobilinogen 0.2 mg/dL (0.2-1.0) 11/21/19 11:30 Ur Leukocyte Esterase Negative (NEGATIVE) 11/21/19 11:30 Urine WBC (Auto) 0-2 /hpf (0-5) 11/21/19 11:30 Urine RBC (Auto) 10-15 /hpf (0-4) 11/21/19 11:30 U Epithel Cells (Auto) Few /HPF (0-5/HPF) 11/21/19 11:30 RPR Titer Nonreactive (NONREACTIVE) 11/19/19 08:00 lab noted - Treatment Hospital Course: Detox Protocol Followed, Detoxed Safely, Responded well, Discharged Condition Good, Rehab Referral Accepted Patient has Accepted a Rehab Referral to: [facility] - Medication Discharge Medications: Ambulatory Orders Duloxetine HCl [Cymbalta] 20 mg PO DAILY 02/16/19 Lamotrigine [Lamictal Xr] 50 mg PO DAILY 02/16/19 - Diagnosis (1) Alcohol dependence with uncomplicated withdrawal Status: Acute (2) Substance induced mood disorder Status: Suspected - AMA Did Patient Leave Against Medical Advice: No CIWA Score - CIWA Score Nausea/Vomitin-No Nausea/No Vomiting Muscle Tremors: 1-None Visible, but [place] Anxiety: 1-Mildly Anxious Agitation: 0-Normal Activity Paroxysmal Sweats: No Perspiration Orientation: 0-Oriented Tacttile Disturbances: 0-None Auditory Disturbances: 0-None Visual Disturbances: 0-None Headache: 0-None Present CIWA-Ar Total Score: 2
== END 2019-11-22 08:53 | disposition home or self-care (01) | DRG 774 ==
LOC: YASAS 10:05 → Y3N 11:29
PROVIDERS: ADMIT Allergy & Immunology; ATTEND Allergy & Immunology
PROC: HZ2ZZZZ Detoxification Services for Substance Abuse Treatment (ICD-10-PCS; principal; 2019-11-18)
DX: F10.230 Alcohol dependence with withdrawal, uncomplicated (principal); F10.24 Alcohol dependence with alcohol-induced mood disorder; F10.282 Alcohol dependence with alcohol-induced sleep disorder; F14.20 Cocaine dependence, uncomplicated; F19.24 Other psychoactive substance dependence with psychoactive substance-induced mood disorder; F32.9 Major depressive disorder, single episode, unspecified; Z87.891 Personal history of nicotine dependence
CPT/HCPCS: 36415; 80053; 81003; 81025; 85027; 86593

== ENCOUNTER 2023-08-01 21:12 | Inpatient (IN) | payer BC ==
[2023-08-01 21:45] VITALS: BMI 23.0
[2023-08-01] MEDS ORDERED: ACETAMINOPHEN 325 MG TABLET (FP) PO PRN (23:29)
[2023-08-01] MEDS ORDERED: MAG HYDROX/AL HYDROX/SIMETH 30 ML UNIT-DOSE CUP PO PRN (23:29)
[2023-08-01] MEDS ORDERED: IBUPROFEN 600 MG TABLET (FP) PO PRN (23:29)
[2023-08-01] MEDS ORDERED: ONDANSETRON *ODT* 4 MG TABLET SL PRN (23:29)
[2023-08-01] MEDS ORDERED: IBUPROFEN 400 MG TABLET (FP) PO PRN (23:29)
[2023-08-01] MEDS ORDERED: POLYETHYLENE GLYCOL (HEALTHYLAX) 3350 17 GM PACKET PO PRN (23:29)
[2023-08-01] MEDS ORDERED: guaiFENesin 600 MG TABLET.ER (FP) PO PRN (23:29)
[2023-08-01] MEDS ORDERED: LOPERAMIDE HCL 2 MG CAPSULE PO PRN (23:29)
[2023-08-01] MEDS ORDERED: BENZONATATE 200 MG CAPSULE PO PRN (23:29)
[2023-08-01] MEDS ORDERED: P-EPHED 60MG/TRIPROLIDI 2.5MG TABLET PO PRN (23:29)
[2023-08-01] MEDS ORDERED: BENZOCAINE/MENTHOL (CHLORASEPTIC ) LOZENGE MM PRN (23:29)
[2023-08-01] MEDS ORDERED: MAGNESIUM HYDROX 2400MG/30ML ORAL SUSPENSION 30 ML CUP PO PRN (23:29)
[2023-08-01] MEDS ORDERED: DICYCLOMINE HCL 10 MG CAPSULE PO PRN (23:29)
[2023-08-02] MEDS ORDERED: hydrOXYzine PAMOATE 25 MG CAPSULE (FP) PO ONE (01:08)
[2023-08-02] MEDS: hydrOXYzine PAMOATE 25 MG CAPSULE (FP) PO PRN ×3 (01:13→20:49)
[2023-08-02] MEDS: METHOCARBAMOL 500 MG TABLET PO PRN ×2 (03:52→16:54)
[2023-08-02] MEDS ORDERED: LORazepam 1 MG TABLET PO PRN (08:52)
[2023-08-02 09:32] LABS: POTASSIUM 3.6 mmol/L (3.5-5.1)
[2023-08-02 09:34] LABS: HEMATOCRIT 35.6 % (32.4-45.2); HEMOGLOBIN 11.7 GM/dL (10.7-15.3); MCH 29.3 pg (25.7-33.7); MCHC 32.9 g/dl (32.0-36.0); MEAN PLT VOLUME 7.5 fl (7.5-11.1); PLATELET COUNT 325 10^3/uL (134-434); RDW 15.9 % (11.6-15.6); WHITE BLOOD COUNT 4.2 K/mm3 (4.0-10.0)
[2023-08-02 09:47] LABS: CALCIUM 7.7 mg/dL (8.5-10.1)
[2023-08-02 09:48] LABS: ALBUMIN 2.7 g/dl (3.4-5.0); BLOOD UREA NITROGEN 6.7 mg/dL (7-18)
[2023-08-02 09:50] LABS: CREATININE 0.6 mg/dL (0.55-1.3)
[2023-08-02 09:52] LABS: BILIRUBIN,TOTAL 0.7 mg/dL (0.2-1); TOT PROT 6.1 g/dl (6.4-8.2)
[2023-08-02] MEDS: PRENATAL VITAMINS W/ FOLIC ACID TABLET (FP) PO SCH (10:20)
[2023-08-02] MEDS: LORazepam 2 MG TABLET PO SCH ×3 (10:21→22:18)
[2023-08-02] MEDS: lamoTRIgine 25 MG TABLET PO SCH (11:00)
[2023-08-02] MEDS: DULoxetine HCL 20 MG CAPSULE.DR PO SCH (11:26)
[2023-08-02] MEDS: MELATONIN 5 MG TABLETS PO SCH (22:18)
[2023-08-02] MEDS: THIAMINE HCL 100 MG TABLET (FP) PO SCH (22:19)
[2023-08-02] MEDS: QUEtiapine FUMARATE 50 MG TABLET PO SCH (22:20)
[2023-08-03] MEDS: hydrOXYzine PAMOATE 25 MG CAPSULE (FP) PO PRN ×2 (05:38→16:45)
[2023-08-03] MEDS: LORazepam 2 MG TABLET PO SCH ×4 (05:38→22:06)
[2023-08-03] MEDS: DULoxetine HCL 20 MG CAPSULE.DR PO SCH (10:32)
[2023-08-03] MEDS: PRENATAL VITAMINS W/ FOLIC ACID TABLET (FP) PO SCH (10:32)
[2023-08-03] MEDS: lamoTRIgine 25 MG TABLET PO SCH (10:32)
[2023-08-03] MEDS: THIAMINE HCL 100 MG TABLET (FP) PO SCH (22:06)
[2023-08-03] MEDS: MELATONIN 5 MG TABLETS PO SCH (22:06)
[2023-08-03] MEDS: QUEtiapine FUMARATE 50 MG TABLET PO SCH (22:06)
[2023-08-04] MEDS: LORazepam 1 MG TABLET PO SCH ×2 (05:15→10:11)
[2023-08-04] MEDS: PRENATAL VITAMINS W/ FOLIC ACID TABLET (FP) PO SCH (10:11)
[2023-08-04] MEDS: DULoxetine HCL 20 MG CAPSULE.DR PO SCH (10:12)
[2023-08-04] MEDS: lamoTRIgine 25 MG TABLET PO SCH (10:12)
[2023-08-04] MEDS: BISMUTH SUBSALICYLATE 524 MG/30 ML PO PRN ×2 (10:15→13:58)
[2023-08-04 12:48] VITALS: BP 105/57; PULSE 60; RESP 18; TEMP 97.7
[2023-08-04 16:43] LABS: EPI CELLS >36 /uL (0-25.1); HYALINE CASTS 3 /uL (0-3.1); URINE APPEARANCE CLOUDY; URINE BACTERIA 6589 /uL (0-1359); URINE BILIRUBIN NEGATIVE (NEGATIVE); URINE COLOR YELLOW; URINE GLUCOSE (UA) NEGATIVE (NEGATIVE); URINE KETONE NEGATIVE (NEGATIVE); URINE LEUK ESTERASE 1+ (NEGATIVE); URINE NITRITE NEGATIVE (NEGATIVE); URINE PROTEIN NEGATIVE (NEGATIVE); URINE UROBILINOGEN 0.2 mg/dL (0.2-1.0); URINE WBC 196 /uL (0-25.8)
[2023-08-04 17:28] LABS: URINE RBC 40.1 /uL (0-23.9)
[2023-08-05] MEDS ORDERED: LORazepam 0.5 MG TABLET PO SCH (05:00)
[2023-08-06] MEDS ORDERED: LORazepam 0.5 MG TABLET PO ONE (05:00)
== END 2023-08-04 15:04 | disposition left against medical advice (07) | DRG 770 ==
LOC: YASAS 21:12 → Y6N 08-02 01:13
PROVIDERS: ADMIT Allergy & Immunology; ATTEND Surgery
PROC: HZ2ZZZZ Detoxification Services for Substance Abuse Treatment (ICD-10-PCS; principal; 2023-08-02)
DX: F10.230 Alcohol dependence with withdrawal, uncomplicated (principal); F14.10 Cocaine abuse, uncomplicated; F10.24 Alcohol dependence with alcohol-induced mood disorder; F25.0 Schizoaffective disorder, bipolar type; F10.220 Alcohol dependence with intoxication, uncomplicated; Z86.59 Personal history of other mental and behavioral disorders
CPT/HCPCS: 36415; 80053; 81003; 81025; 85027; 86780; 87635; 87811; Q0162